=== PATIENT | female | born 1990 | race Caucasian/White ===

== ENCOUNTER 2019-06-10 06:00 | Inpatient (IN) ==
[2019-06-10] MEDS ORDERED: *HR* FentaNYL (PF) 100 MCG/2 ML VIAL IVP PRN (06:14)
[2019-06-10] MEDS ORDERED: Famotidine 20 MG/2 ML VIAL IVP PRN (06:14)
[2019-06-10] MEDS ORDERED: Naloxone 0.4 MG/ML INJ IVP PRN ×2 (06:14→07:48)
[2019-06-10] MEDS ORDERED: Ondansetron 4 MG/2 ML VIAL IVP PRN ×2 (06:14→07:48)
[2019-06-10] MEDS ORDERED: Lidocaine 1% 20 ML MDV INFILT PRN (06:14)
[2019-06-10] MEDS ORDERED: Metoclopramide 10 MG/2 ML VIAL IVP PRN (06:14)
[2019-06-10] MEDS ORDERED: miSOPROStoL 25 MCG TABLET PO PRN (06:33)
[2019-06-10 06:53] LABS: Basophils % 0.2 %; Eosinophils % 0.3 %; Hemoglobin 13.3 g/dL (11.5-15.4); Immature Granulocytes % 0.6 % (0-4); Lymphocytes # 1.7 K/mcL (0.6-4.6); Lymphocytes % 17.1 %; Mean Corpuscular HGB Conc 33.3 g/dL (31.6-35.5); Mean Corpuscular Hemoglobin 31.1 pg (28.0-33.3); Mean Corpuscular Volume 93.7 fL (83.0-100.0); Mean Platelet Volume 12.9 fL (9.4-12.4); Monocytes # 0.6 K/mcL (0.0-1.3); Monocytes % 5.9 %; Neutrophils # 7.7 K/mcL (1.6-8.9); Platelet Count 119 K/mcL (140-400); Red Blood Count 4.27 M/mcL (3.82-4.97); Red Cell Distribution Width 12.8 % (11.5-14.5); Segmented Neutrophils % 75.9 %; White Blood Count 10.2 K/mcL (4.3-11.1)
[2019-06-10 06:59] LABS: Amphetamine Screen,Urine Negative ng/mL (Cutoff=1000); Barbiturate Screen,Urine Negative ng/mL (Cutoff=200); Benzodiazepines Screen,Urine Negative ng/mL (Cutoff=300); Cannabinoid Screen,Urine Negative ng/mL (Cutoff = 50); Cocaine Screen,Urine Negative ng/mL (Cutoff= 300); Opiate Screen,Urine Negative ng/mL (Cutoff=300); Phencyclidine Screen,Urine Negative ng/mL (Cutoff=25)
[2019-06-10] MEDS: Ringers Solution, Lactated 1,000 ML IVC SCH ×2 (07:42→16:27)
[2019-06-10] MEDS ORDERED: EPHEDrine 50 MG/ML VIAL IVP PRN (07:48)
[2019-06-10] MEDS ORDERED: Ropivacaine/PF 0.2% 20 ML VIAL EP ONE (07:48)
[2019-06-10] MEDS ORDERED: *HR* FentaNYL (PF) 100 MCG/2 ML VIAL EP ONE (07:48)
[2019-06-10] MEDS ORDERED: Epidural Premix (fent/bupiv) 110 ML EP SCH (08:00)
[2019-06-10] MEDS ORDERED: Oxytocin 20 units/ LR 1000 mL 20 UNIT/1,000 ML BAG IVC SCH ×2 (11:15→21:32)
[2019-06-10] MEDS ORDERED: *HR* FentaNYL (PF) 100 MCG/2 ML VIAL ONE (15:48)
[2019-06-10] MEDS ORDERED: Lanolin 7 G OINT...G. TP PRN (21:32)
[2019-06-10] MEDS ORDERED: Benzocaine/Menthol 56 GM AEROSOL SPRAY TP PRN (21:32)
[2019-06-10] MEDS ORDERED: Ibuprofen 600 MG TABLET PO PRN (21:32)
[2019-06-10] MEDS ORDERED: Acetaminophen 325 MG TABLET PO PRN (21:32)
[2019-06-11] MEDS ORDERED: Prenatal Vit/FA 1 EACH TABLET PO SCH (09:00)
[2019-06-11 18:57] VITALS: BP 130/88
== END 2019-06-11 21:00 | disposition home or self-care (01) | DRG 807 ==
LOC: 1NENULAB 06:14 → 1NENUOBS 21:54
PROVIDERS: ADMIT Obstetrics & Gynecology; ATTEND Obstetrics & Gynecology

== ENCOUNTER 2020-09-01 22:15 | Observation (INO) ==
[2020-09-01 23:03] LABS: Basophils % 0.2 %; Eosinophils % 0.3 %; Hematocrit 36.6 % (35.3-44.9); Hemoglobin 12.1 g/dL (11.5-15.4); Immature Granulocytes % 0.5 % (0-4); Lymphocytes # 1.9 K/mcL (0.6-4.6); Lymphocytes % 14.5 %; Mean Corpuscular HGB Conc 33.1 g/dL (31.6-35.5); Mean Corpuscular Hemoglobin 30.9 pg (28.0-33.3); Mean Corpuscular Volume 93.6 fL (83.0-100.0); Mean Platelet Volume 11.2 fL (9.4-12.4); Monocytes # 0.7 K/mcL (0.0-1.3); Monocytes % 5.5 %; Neutrophils # 10.2 K/mcL (1.6-8.9); Platelet Count 141 K/mcL (140-400); Red Blood Count 3.91 M/mcL (3.82-4.97); Red Cell Distribution Width 12.5 % (11.5-14.5); White Blood Count 12.9 K/mcL (4.3-11.1)
[2020-09-01 23:21] LABS: Alanine Aminotransferase 14 Units/L (7-52); Aspartate Amino Transferase 13 Units/L (13-39); BUN/Creatinine Ratio 22 (6-26); Blood Urea Nitrogen 15 mg/dL (6-20); Lactate Dehydrogenase 144 Units/L (140-271); Uric Acid 3.3 mg/dL (2.3-7.6); eGFR For African Americans > 60 (> 60); eGFR For Non-African Americans > 60 (> 60)
[2020-09-01 23:23] LABS: Creatinine,Urine 31 mg/dL
== END 2020-09-01 23:35 | disposition home or self-care (01) ==
LOC: 1NENULAB 22:15 → INTOOBSV 22:15
PROVIDERS: ADMIT Obstetrics & Gynecology; ATTEND Obstetrics & Gynecology

== ENCOUNTER 2020-10-05 08:00 | Inpatient (IN) ==
[2020-10-05] MEDS ORDERED: EPHEDrine 50 MG/ML VIAL IVP PRN (08:03)
[2020-10-05] MEDS ORDERED: Famotidine 20 MG/2 ML VIAL IVP PRN (08:08)
[2020-10-05] MEDS ORDERED: Metoclopramide 10 MG/2 ML VIAL IVP PRN (08:08)
[2020-10-05] MEDS ORDERED: Naloxone 0.4 MG/ML INJ IVP PRN (08:08)
[2020-10-05] MEDS ORDERED: miSOPROStoL 25 MCG TABLET PO PRN (08:10)
[2020-10-05] MEDS ORDERED: Epidural Premix (fent/bupiv) 110 ML EP SCH (08:15)
[2020-10-05] MEDS ORDERED: Ringers Solution, Lactated 1,000 ML ONE ×3 (09:00→19:36)
[2020-10-05 09:16] LABS: Basophils % 0.2 %; Eosinophils % 0.2 %; Hematocrit 38.4 % (35.3-44.9); Hemoglobin 12.5 g/dL (11.5-15.4); Immature Granulocytes % 0.5 % (0-4); Lymphocytes # 1.5 K/mcL (0.6-4.6); Lymphocytes % 14.5 %; Mean Corpuscular HGB Conc 32.6 g/dL (31.6-35.5); Mean Corpuscular Hemoglobin 30.1 pg (28.0-33.3); Mean Corpuscular Volume 92.5 fL (83.0-100.0); Mean Platelet Volume 12.2 fL (9.4-12.4); Monocytes # 0.7 K/mcL (0.0-1.3); Monocytes % 6.6 %; Platelet Count 120 K/mcL (140-400); Red Blood Count 4.15 M/mcL (3.82-4.97); White Blood Count 10.3 K/mcL (4.3-11.1)
[2020-10-05] MEDS ORDERED: Oxytocin 20 units/ LR 1000 mL 20 UNIT/1,000 ML BAG IVC SCH (09:45)
[2020-10-05] MEDS ORDERED: Ondansetron 4 MG/2 ML VIAL IVP PRN (11:01)
[2020-10-05] MEDS ORDERED: *HR* Nalbuphine 10 MG/ML AMPUL IV PRN (11:03)
[2020-10-05 11:17] LABS: Amphetamine Screen,Urine Negative ng/mL (Cutoff=1000); Barbiturate Screen,Urine Negative ng/mL (Cutoff=200); Benzodiazepines Screen,Urine Negative ng/mL (Cutoff=200); Cannabinoid Screen,Urine Negative ng/mL (Cutoff = 50); Cocaine Screen,Urine Negative ng/mL (Cutoff= 300); Opiate Screen,Urine Negative ng/mL (Cutoff=300); Phencyclidine Screen,Urine Negative ng/mL (Cutoff=25)
[2020-10-06] MEDS ORDERED: Acetaminophen 325 MG TABLET PO PRN (01:27)
[2020-10-06] MEDS ORDERED: Benzocaine/Menthol 56 GM AEROSOL SPRAY TP PRN (01:27)
[2020-10-06] MEDS ORDERED: Lanolin 7 G OINT...G. TP PRN (01:27)
[2020-10-06] MEDS ORDERED: Oxytocin 20 units/ LR 1000 mL 20 UNIT/1,000 ML BAG IVC SCH (01:27)
[2020-10-06] MEDS ORDERED: *HR* Nalbuphine 10 MG/ML AMPUL IV PRN (02:49)
[2020-10-06] MEDS: Ibuprofen 600 MG TABLET PO PRN ×2 (08:48→21:13)
[2020-10-06] MEDS: Prenatal Vit/FA 1 EACH TABLET PO SCH (08:48)
[2020-10-07] MEDS: Ibuprofen 600 MG TABLET PO PRN (06:36)
[2020-10-07] MEDS: Prenatal Vit/FA 1 EACH TABLET PO SCH (08:07)
[2020-10-07 08:14] VITALS: BP 122/85
== END 2020-10-07 13:37 | disposition home or self-care (01) | DRG 807 ==
LOC: 1NENULAB 08:00 → 1NENUOBS 10-06 02:59
PROVIDERS: ADMIT Obstetrics & Gynecology; ATTEND Obstetrics & Gynecology